=== PATIENT | female | born 1940 | race Caucasian/White ===

== ENCOUNTER → 2017-12-08 | Outpatient (CLI) | payer OTHER ==
[~2017-12-08] MED LIST: NORVASC5 MG; PROAIR HFA8.5 GM
[2017-12-08 14:59] VITALS: BP 160/80
== END ==
LOC: RAD 12:30 → SEN 12:30
DX: J84.10 Pulmonary fibrosis, unspecified (principal); M47.814 Spondylosis without myelopathy or radiculopathy, thoracic region; I70.0 Atherosclerosis of aorta; J45.909 Unspecified asthma, uncomplicated

== ENCOUNTER → 2018-08-24 | Outpatient (CLI) | payer OTHER | LOC: SEN 11:38 | DX: M67.442 Ganglion, left hand (principal); L23.7 Allergic contact dermatitis due to plants, except food; I10 Essential (primary) hypertension; J45.909 Unspecified asthma, uncomplicated ==